=== PATIENT | male | born 1965 | race Caucasian/White ===

== ENCOUNTER 2016-12-13 08:23 | Emergency (ER) | payer OTHER ==
[~2016-12-13] VITALS: Ht 175.3 cm; Wt 77.1 kg
--- NOTE | ~2016-12-13 | EKG ---
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
[~2016-12-13 08:23] MED LIST: BACTRIM DS TAB1 EACH PO; BACTROBAN NASAL1 GM NS; DOXYCYCLINE 10100 MG PO; NEURONTIN 300300 M1 PO; NORCO 5-325 TA1 EACH PO; OXYCODONE HCL5 M1 PO; ZYLET OP
[2016-12-13 08:54] LABS: BASOPHILS 1.1 % (0.0-2.0); HEMATOCRIT 37.8 % (42.0-52.0); HEMOGLOBIN 12.9 gm/dL (14.0-18.0); LYMPHOCYTES 22.3 % (24.0-44.0); MCH 31.5 pg (26.0-34.0); MCHC 34.2 g/dL (28.0-37.0); MCV 92.1 fL (80.0-100.0); MONOCYTES 8.9 % (1.0-8.0); PLATELET COUNT 189 thou/uL (150-400); POLYS 63.7 % (36.0-66.0); RBC 4.11 mil/uL (4.50-6.00); RDW 13.4 % (10.5-14.5); WBC 7.8 thou/uL (4.0-11.0)
[2016-12-13 09:02] LABS: MANUAL DIFF NO
[2016-12-13 09:10] LABS: ANION GAP 8 mmol/L (7-16); BUN 12 mg/dL (7-18); CALCIUM 9.4 mg/dL (8.5-10.1); CHLORIDE 105 mmol/L (98-107); CO2 29 mmol/L (21-32); CREATININE 0.9 mg/dL (0.7-1.3); GLUCOSE 137 mg/dL (74-106); POTASSIUM 3.6 mmol/L (3.5-5.1); SODIUM 142 mmol/L (136-145)
[2016-12-13 09:19] LABS: TROPONIN-I < 0.04 ng/mL (<0.04-0.07)
[2016-12-13] MEDS ORDERED: DOXYCYCLINE 10100 MG PO (10:26)
[2016-12-13] MEDS ORDERED: NORCO 5-325 TA1 EACH PO (10:26)
[2016-12-13 10:42] VITALS: BP 128/68
== END 2016-12-13 10:26 | disposition home or self-care (01) ==
LOC: ER 08:23
PROVIDERS: Emergency Medicine
DX: J18.9 Pneumonia, unspecified organism (principal); R07.89 Other chest pain; R04.2 Hemoptysis; F17.200 Nicotine dependence, unspecified, uncomplicated; F12.10 Cannabis abuse, uncomplicated; Z96.652 Presence of left artificial knee joint; Z86.14 Personal history of Methicillin resistant Staphylococcus aureus infection

== ENCOUNTER 2017-01-06 09:43 | Emergency (ER) | payer OTHER | END 2017-01-06 12:02 | disposition home or self-care (01) | LOC: ER 09:43 | DX: J18.1 Lobar pneumonia, unspecified organism (principal); F17.210 Nicotine dependence, cigarettes, uncomplicated; Z96.652 Presence of left artificial knee joint ==

== ENCOUNTER 2017-01-06 22:47 | Observation (INO) | payer OTHER ==
[~2017-01-06] VITALS: Ht 175.3 cm; Wt 82.9 kg
--- NOTE | ~2017-01-06 | HC ---
[facility] [place] [address] CONSULTATION Name: SHASHA RODRIGUEZ Room #: 433-I [facility]..#: [id number] Admission: 01/07/17 Attend Phys: Paolo Rodriguez DO Discharge: Date of : 65 Report #: [id number] THIS REPORT FOR: //name// CC: [facility] physician/PCP Paolo Rodriguez REFERRAL PHYSICIAN: Paolo Rodriguez DO. REASON FOR REFERRAL: Pleuritic chest pain. HISTORY OF PRESENT ILLNESS: The patient is a 51-year-old white male who presents to the Emergency Room with right-sided chest pain. A pulmonary consultation was requested. The patient was seen in the Emergency Room about 2 weeks ago. At that time, he was felt to have pneumonia by chest x-ray involving the right lower lobe. Doxycycline was given. The patient states that he was improved until yesterday when he was awoken with a pleuritic type chest pain involving the right upper chest, lower chest area. It is felt to be variable, pleuritic in nature. About 10 days ago, he stated that he coughed ____ hemoptysis. This has spontaneously resolved. Otherwise, denies any night sweats or chills, nausea, vomiting, diarrhea. The patient continues to smoke about a pack a day. He has never been diagnosed with chronic lung disease. In the ER, CT chest angiogram was performed. This revealed bilateral infiltrates, greater in the right lower lobe than the left. No other abnormalities were noted. No pleural effusion seen. Of note, liver showed macronodular changes consistent with cirrhosis. CT abdomen and pelvis also grossly unremarkable other than cirrhosis. PAST MEDICAL HISTORY: Notable for recent pneumonia as mentioned above, about 2 weeks ago, tobacco abuse, questionable history of alcohol abuse. PAST SURGICAL HISTORY: Status post left total knee replacement. ALLERGIES: None to medications. HOME MEDICATIONS: Include recent course of doxycycline, Naprosyn, Levaquin, Ultram, Ventolin HFA. FAMILY HISTORY: Noncontributory. SOCIAL HISTORY: He is and continues to smoke about a pack a day. [facility] [address] [place] [address] CONSULTATION Name: RODRIGUEZPULLIAM D Room #: 433-I [facility] M..#: [id number] Admission: 01/07/17 Attend Phys: Paolo Rodriguez DO Discharge: Date of : 65 Report #: [id number] denies any alcohol use. 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 REVIEW OF SYSTEMS: As mentioned above, otherwise 10-point system reviewed and negative. PHYSICAL EXAMINATION: GENERAL: He is awake, alert, in mild distress due to reported pleuritic chest pains. VITAL SIGNS: Temperature is 97.7 degrees Fahrenheit, pulse is 77, respiratory rate is 20, blood pressure 127/69 mmHg and saturation 98% on supplemental O2. HEENT: Normocephalic, atraumatic. NECK: Supple, without any lymphadenopathy or thyromegaly. CHEST: Breath sounds are clear bilaterally without any rales or wheezes. CARDIOVASCULAR: Normal S1, S2. There are no murmurs or gallop. There is no JVD. There is no carotid bruit. Pulses are 2+/4+ bilaterally. ABDOMEN: Soft, nontender, no organomegaly or masses felt. GENITOURINARY: Deferred. RECTAL: Deferred. EXTREMITIES: There is no edema, cyanosis or clubbing. LABORATORY DATA: CT chest as mentioned above showing bibasilar infiltrates, greater in the right than the left. No pulmonary embolus. Trace of the right-sided pleural effusion is seen. D-dimer was 1.0. CT abdomen and pelvis as mentioned above. Urine drug screen was positive for amphetamines, opiates, marijuana. Electrolytes are normal, creatinine is normal. Liver function tests grossly normal. WBC is 13,600, hemoglobin is normal, platelets normal. There is bandemia present with 10% bands, albumin 3.8. IMPRESSION: 1. Acute onset of pleuritic chest pain in this 51-year-old white male. CT chest angiogram shows no pulmonary embolus, but infiltrates involving both lower lobes. Trace right-sided pleural effusion is seen. Cause of the pleuritic chest pain is unclear. Pain appears to be disproportionate to radiographic findings. It may be related pleuritis, perhaps related to ongoing pneumonia resulting in parapneumonic process. Vasculitis is considered. Musculoskeletal is possible. 2. Bibasilar infiltrates. He has leukocytosis along with bandemia. He does not have a productive cough. This may be resolving infiltrates, but I would treat for presumed recurrent pneumonia such as aspiration. 3. Recent hemoptysis. This was isolated about over a week ago. Radiograph does not suggest tuberculosis in nature, hemoptysis likely is result of his pneumonitis. 4. Tobacco abuse. Suspect he may have underlying chronic lung disease. 5. Positive urine drug test for multiple substance abuse. There may be concerns for possible alcohol abuse. Alcohol withdrawal precautions should be considered. [facility] [address] [place] [address] CONSULTATION Name: SHASHA RODRIGUEZ Room #: 433-I [facility] Morgan Yañez#: [id number] Admission: 01/07/17 Attend Phys: Paolo Rodriguez DO Discharge: Date of : 65 Report #: [id number] 6. Cirrhosis, question alcohol abuse. RECOMMENDATION: Agree with corticosteroids and bronchodilators along with broad-spectrum antibiotics in particular to cover for possible aspiration pneumonia. Would also obtain procalcitonin level. Again, I do not think the patient has tuberculosis but will await TB SPOT test. Would be cautious in using narcotics in this patient with apparent polysubstance abuse. DVT and GI prophylaxis will be addressed. Counseling for smoke cessation is recommended. <ELECTRONICALLY SIGNED> By: Godfrey Gabriel MD 01/08/17 1240 1552 1855 Godfrey Gabriel MD /nt
--- NOTE | ~2017-01-06 | EKG ---
[address] [place] [address] ELECTROCARDIOGRAM REPORT Name: SHASHA RODRIGUEZ Room #: 433-I [facility].#: [id number] Admission: 01/07/17 Attend Phys: Paolo Rodriguez DO Discharge: Date of : 65 Report #: [id number] THIS REPORT FOR: //name// [facility] Test Date: 2017-01-07 Test Time: 08:24:35 Pat Name: SHASHA RODRIGUEZ Department: Room: 433 Gender: M Manager Program Management: FABIANA : 1965 Requested By: Amaury Matthews Order Number: [id number] MD: Geoff Love Measurements Intervals [place] Rate: 71 P: 57 [place]: 174 QRS: 27 QRSD: 101 T: 7 QT: 388 QTc: 422 Interpretive Statements Sinus rhythm No significant abnormality Compared to ECG 12/13/2016 08:43:35 No significant changes Electronically Signed On 01-09-2017 12:42:58 CDT by Geoff Love [email or web address] <ELECTRONICALLY SIGNED> By: Geoff Love MD, [facility] 01/09/17 1242 0824 3 Geoff Love MD, FACC /EPI
--- NOTE | ~2017-01-06 | EKG ---
[address] [employer] [place] [address] ELECTROCARDIOGRAM REPORT Name: SHASHA RODRIGUEZ Room #: 433-I [facility]#: [id number] Admission: 01/07/17 Attend Phys: Paolo Rodriguez DO Discharge: Date of : 65 Report #: [id number] THIS REPORT FOR: //name// [facility] ED Test Date: 2017-01-06 Test Time: 22:59:04 Pat Name: SHASHA RODRIGUEZ Department: Room: On license of [facility] Gender: M Supervisor Loading: NICOLE : 1965 Requested By: Amna Darby Order Number: [id number] MD: Geoff Love Measurements Intervals [place] Rate: 123 P: 73 [place]: 165 QRS: 68 QRSD: 99 T: 6 QT: 287 QTc: 411 Interpretive Statements Sinus tachycardia Probable left atrial enlargement Left ventricular hypertrophy Baseline wander in lead(s) Compared to ECG 12/13/2016 08:43:35 Sinus tachycardia is now present Electronically Signed On 01-09-2017 9:23:10 CDT by Geoff Love [email or web address] <ELECTRONICALLY SIGNED> By: Geoff Love MD, [facility] 01/09/17 09 2259 58 Geoff Love MD, [facility] /EPI
[~2017-01-06 22:47] MED LIST changes: +LEVAQUIN 750 M750 MG PO; +NAPROSYN500 MG PO; +TRAMADOL 50 MG50 MG PO; +VENTOLIN HFA 1818 GM INH
[2017-01-06 22:51] VITALS: BP 141/82
[2017-01-06 23:08] LABS: HEMATOCRIT 42.3 % (42.0-52.0); HEMOGLOBIN 14.3 gm/dL (14.0-18.0); MCH 30.8 pg (26.0-34.0); MCHC 33.7 g/dL (28.0-37.0); MCV 91.1 fL (80.0-100.0); PLATELET COUNT 216 thou/uL (150-400); RBC 4.64 mil/uL (4.50-6.00); RDW 13.4 % (10.5-14.5); WBC 13.6 thou/uL (4.0-11.0)
[2017-01-06 23:14] LABS: ANION GAP 10 mmol/L (7-16); BUN 11 mg/dL (7-18); CALCIUM 9.7 mg/dL (8.5-10.1); CHLORIDE 98 mmol/L (98-107); CO2 28 mmol/L (21-32); CREATININE 1.1 mg/dL (0.7-1.3); GLUCOSE 150 mg/dL (74-106); POTASSIUM 4.1 mmol/L (3.5-5.1); SODIUM 136 mmol/L (136-145)
[2017-01-06 23:17] LABS: PROTIME 10.7 Seconds (9.3-11.4)
[2017-01-06 23:22] LABS: ALBUMIN 3.8 g/dL (3.4-5.0); ALKALINE PHOSPHATASE 108 U/L (46-116); SGOT 48 U/L (15-37); SGPT 54 U/L (30-65); TOTAL BILIRUBIN 0.7 mg/dL (<0.1-1.0); TOTAL PROTEIN 7.9 g/dL (6.4-8.2); TROPONIN-I < 0.04 ng/mL (<0.04-0.07)
[2017-01-06 23:45] LABS: MANUAL DIFF YES
[2017-01-06 23:50] LABS: ABSOLUTE NEUTROPHILS 11.8 thou/uL (1.4-8.2); ATYPICAL LYMPHS 2 %; TOTAL CELL COUNT 100
[2017-01-07 00:44] LABS: AMP/METHAMP POSITIVE (Negative); BARBITURATES Negative (Negative); BENZODIAZEPINES Negative (Negative); COCAINE Negative (Negative); METHADONE Negative (Negative); OPIATES POSITIVE (Negative); PCP Negative (Negative); THC POSITIVE (Negative)
[2017-01-07 01:15] VITALS: BP 119/71
[2017-01-07 08:27] VITALS: BP 127/69
[2017-01-07 16:25] VITALS: BP 117/57
[2017-01-07 19:12] VITALS: BP 162/59
[2017-01-08 03:24] VITALS: BP 114/55
[2017-01-08 08:00] VITALS: BP 114/55
[2017-01-08 08:51] VITALS: BP 144/77
[2017-01-08 16:00] VITALS: BP 143/72
[2017-01-08 19:27] VITALS: BP 146/65
[2017-01-09 04:10] VITALS: BP 129/70
[2017-01-09 04:59] LABS: HEMATOCRIT 36.8 % (42.0-52.0); MCH 30.4 pg (26.0-34.0); MCHC 33.2 g/dL (28.0-37.0); MCV 91.7 fL (80.0-100.0); PLATELET COUNT 238 thou/uL (150-400); RBC 4.01 mil/uL (4.50-6.00)
[2017-01-09 05:04] LABS: HEMOGLOBIN 12.2 gm/dL (14.0-18.0); MANUAL DIFF YES
[2017-01-09 05:12] LABS: CALCIUM 9.6 mg/dL (8.5-10.1); CREATININE 1.1 mg/dL (0.7-1.3); POTASSIUM 4.7 mmol/L (3.5-5.1)
[2017-01-09 08:00] VITALS: BP 129/72
[2017-01-09 08:35] VITALS: BP 129/72
[2017-01-09 08:50] LABS: ABSOLUTE NEUTROPHILS 17.5 thou/uL (1.4-8.2); PLATELET ESTIMATE NORMAL; TOTAL CELL COUNT 100
[2017-01-09] MEDS ORDERED: LEVAQUIN 500 M500 M4 PO (09:23)
[2017-01-09] MEDS ORDERED: PREDNISONE 10 M10 MG PO (09:24)
[2017-01-09 11:44] VITALS: BP 129/72
[2017-01-12 10:07] LABS: NIL (NEGATIVE) CONTROL SPOT CT 0; PANEL A SPOT CT 0; T-SPOT.TB Negative
[2017-01-12 10:08] LABS: PANEL B SPOT CT 0; POSITIVE CONTROL SPOT COUNT > 20
== END 2017-01-09 12:57 | disposition home or self-care (01) ==
LOC: ER 22:47 → EROBS 01-07 00:36 → 4S 01-07 00:43
PROVIDERS: Emergency Medicine; Internal Medicine; Nurse Practitioner Acute Care; Nurse Practitioner Family
DX: J18.9 Pneumonia, unspecified organism (principal); J44.9 Chronic obstructive pulmonary disease, unspecified; R04.2 Hemoptysis; K74.60 Unspecified cirrhosis of liver; F12.90 Cannabis use, unspecified, uncomplicated; F17.210 Nicotine dependence, cigarettes, uncomplicated; R07.89 Other chest pain; Z72.89 Other problems related to lifestyle

== ENCOUNTER 2017-01-11 19:12 | Emergency (ER) | payer OTHER ==
[~2017-01-11] VITALS: Ht 175.3 cm; Wt 79.4 kg
[~2017-01-11 19:12] MED LIST changes: +LEVAQUIN 500 M500 M4 PO; +PREDNISONE 10 M10 MG PO
[2017-01-11 19:13] VITALS: BP 140/85
[2017-01-11 20:25] LABS: ABSOLUTE NEUTROPHILS 10.1 thou/uL (1.4-8.2); BASOPHILS 0.3 % (0.0-2.0); EOSINOPHILS 0.1 % (0.0-3.0); HEMOGLOBIN 12.1 gm/dL (14.0-18.0); LYMPHOCYTES 9.5 % (24.0-44.0); MCH 30.7 pg (26.0-34.0); MCHC 33.6 g/dL (28.0-37.0); MCV 91.5 fL (80.0-100.0); MONOCYTES 7.7 % (1.0-8.0); PLATELET COUNT 238 thou/uL (150-400); POLYS 82.4 % (36.0-66.0); RBC 3.93 mil/uL (4.50-6.00); RDW 13.7 % (10.5-14.5); WBC 12.2 thou/uL (4.0-11.0)
[2017-01-11 20:26] LABS: MANUAL DIFF NO
[2017-01-11 20:37] LABS: CALCIUM 9.3 mg/dL (8.5-10.1); POTASSIUM 3.8 mmol/L (3.5-5.1)
[2017-01-11 20:39] LABS: PROTIME 10.1 Seconds (9.3-11.4)
[2017-01-11 20:43] LABS: ALBUMIN 3.2 g/dL (3.4-5.0); TOTAL BILIRUBIN 0.4 mg/dL (<0.1-1.0); TOTAL PROTEIN 6.9 g/dL (6.4-8.2)
== END 2017-01-11 21:54 | disposition left against medical advice (07) ==
LOC: ER 19:12 → EROBS 21:17 → ER 21:17
PROVIDERS: Physician Assistant
DX: K92.2 Gastrointestinal hemorrhage, unspecified (principal); K70.30 Alcoholic cirrhosis of liver without ascites; D64.9 Anemia, unspecified; F17.210 Nicotine dependence, cigarettes, uncomplicated; F10.99 Alcohol use, unspecified with unspecified alcohol-induced disorder; Z96.652 Presence of left artificial knee joint

== ENCOUNTER 2017-01-12 11:21 | Emergency (ER) | payer OTHER ==
[~2017-01-12] VITALS: Ht 175.3 cm; Wt 79.4 kg
--- NOTE | ~2017-01-12 | EKG ---
[place] [address] [employer] [place] [address] ELECTROCARDIOGRAM REPORT Name: SHASHA RODRIGUEZ Room #: [facility]P Otilio#: [id number] Admission: 01/12/17 Attend Phys: Discharge: 01/12/17 Date of : 65 Report #: [id number] THIS REPORT FOR: //name// [facility] ED Test Date: 2017-01-12 Test Time: 11:35:44 Pat Name: SHASHA RODRIGUEZ Department: Room: 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 : 1965 Requested By: Pauly Bee Order Number: [id number] MD: Geoff Love Measurements Intervals [place] Rate: 93 P: 73 [place]: 146 QRS: 23 QRSD: 99 T: 4 QT: 347 QTc: 432 Interpretive Statements Sinus rhythm Probable left atrial enlargement Poor R wave progression Compared to ECG 01/07/2017 08:24:35 No significant changes Electronically Signed On 01-15-2017 13:25:39 CDT by Geoff Love [email or web address] <ELECTRONICALLY SIGNED> By: Geoff Love MD, [facility] 01/15/17 1325 1135 113 Geoff Love MD, FACC /EPI
[2017-01-12 11:33] VITALS: BP 135/79
[2017-01-12 12:40] LABS: BASOPHILS 0.3 % (0.0-2.0); EOSINOPHILS 2.6 % (0.0-3.0); HEMATOCRIT 38.1 % (42.0-52.0); HEMOGLOBIN 12.8 gm/dL (14.0-18.0); LYMPHOCYTES 16.5 % (24.0-44.0); MANUAL DIFF NO; MCH 30.7 pg (26.0-34.0); MCHC 33.5 g/dL (28.0-37.0); MCV 91.7 fL (80.0-100.0); PLATELET COUNT 231 thou/uL (150-400); POLYS 72.6 % (36.0-66.0); RBC 4.15 mil/uL (4.50-6.00); RDW 13.3 % (10.5-14.5); WBC 12.3 thou/uL (4.0-11.0)
[2017-01-12 12:55] LABS: ANION GAP 8 mmol/L (7-16); APTT 26.4 Seconds (24.5-32.8); BUN 19 mg/dL (7-18); CALCIUM 8.9 mg/dL (8.5-10.1); CHLORIDE 106 mmol/L (98-107); CO2 28 mmol/L (21-32); CREATININE 1.1 mg/dL (0.7-1.3); GLUCOSE 114 mg/dL (74-106); POTASSIUM 3.2 mmol/L (3.5-5.1); PROTIME 9.9 Seconds (9.3-11.4); SODIUM 142 mmol/L (136-145)
[2017-01-12 12:59] LABS: ALBUMIN 3.3 g/dL (3.4-5.0); ALKALINE PHOSPHATASE 80 U/L (46-116); DIRECT BILIRUBIN 0.2 mg/dL (<0.1-0.3); SGOT 21 U/L (15-37); SGPT 40 U/L (30-65); TOTAL BILIRUBIN 0.6 mg/dL (<0.1-1.0); TOTAL PROTEIN 6.9 g/dL (6.4-8.2); TROPONIN-I < 0.04 ng/mL (<0.04-0.07)
[2017-01-12 13:49] VITALS: BP 132/73
== END 2017-01-12 16:08 | disposition left against medical advice (07) ==
LOC: ER 11:21 → EROBS 13:23 → ER 13:23 → EROBS 16:08
PROVIDERS: Emergency Medicine
DX: K70.30 Alcoholic cirrhosis of liver without ascites (principal); J18.9 Pneumonia, unspecified organism; K92.2 Gastrointestinal hemorrhage, unspecified; F17.210 Nicotine dependence, cigarettes, uncomplicated; F10.99 Alcohol use, unspecified with unspecified alcohol-induced disorder; Z96.652 Presence of left artificial knee joint